=== PATIENT | male | born 1990 | race Caucasian/White ===

== ENCOUNTER 2017-10-24 01:56 | Emergency (ER) | payer OTHER ==
[~2017-10-24 01:56] MED LIST: ALBU6.7H IH; FLUT1DIS IH; MONT4TAB9 PO
== END 2017-10-24 02:30 | disposition left against medical advice (07) ==
LOC: ER 02:25
DX: R06.02 Shortness of breath (principal); Z53.21 Procedure and treatment not carried out due to patient leaving prior to being seen by health care provider

== ENCOUNTER 2025-03-29 18:38 | Emergency (ER) | payer OTHER ==
[~2025-03-29] VITALS: Ht 170.2 cm; Wt 79.0 kg
[~2025-03-29 18:38] MED LIST changes: -ALBU6.7H IH; +ALBU6.7H15 IH; +MONT4TAB71 PO; -MONT4TAB9 PO
[2025-03-29 18:47] VITALS: O2SAT 100
[2025-03-29 21:00] VITALS: BP 124/74; PULSE 81; RESP 16; TEMP 36.9; O2SAT 100
== END 2025-03-29 21:05 | disposition home or self-care (01) ==
LOC: ER 18:38
DX: M79.674 Pain in right toe(s) (principal); J45.909 Unspecified asthma, uncomplicated; Z79.51 Long term (current) use of inhaled steroids; Z79.899 Other long term (current) drug therapy
CPT/HCPCS: 29515; 73630; 99283